=== PATIENT | female | born 1950 | race Caucasian/White ===

== ENCOUNTER 2020-11-09 02:09 | Inpatient (IN) | payer MEDICARE, MEDICAID, SELFPAY ==
[2020-11-09] VITALS (26 sets, daily range): BP systolic 81–155; BP diastolic 54–107; PULSE 79–140; RESP 15–31; TEMP 35.6–36.8; O2SAT 90–98; BMI 27.4
--- NOTE | 2020-11-09 02:16 | ECG_ITS ---
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 Measurements Intervals [place] Rate: 138 P: NM: QRS: 40 QRSD: 101 T: 70 QT: 306 QTc: 465 Interpretive Statements ATRIAL FIBRILLATION WITH RAPID VENTRICULAR RESPONSE MODERATE ST DEPRESSION [0.05+ mV ST DEPRESSION] Compared to ECG 12/05/2015 23:17:42 ST (T wave) deviation now present Sinus rhythm no longer present Electronically Signed On 11-09-2020 22:27:13 CDT by Danika Alan M.D. [id number]
[2020-11-09] MEDS: LORazepam 1 mg Tablet PO (02:24)
--- NOTE | 2020-11-09 02:26 | W.ED.PSYCH ---
HPI - Psych General: Chief Complaint: Psychiatric Symptoms Stated Complaint: si Time Seen by Provider: 11/09/20 02:12 Source: patient and police Mode of arrival: other (police) Limitations: no limitations History of Present Illness: HPI Narrative: 70-year-old female is brought here by [employer] police. She had called suicide hotline and told him that she is suicidal with a plan to kill herself. They dispatched the police. She has told police and me that she has been having problems with her children they have not been treating her right causing her severe depression and she is having suicidal thoughts. She denies any specific plans. She does want to get help. Associated symptoms: Reports suicidal ideation Review of Systems Const: Denies: fever(s), chills, body aches or change in appetite Eyes: Denies: blurry vision or eye discomfort ENMT: Denies: throat pain or dental pain Card: Denies: chest pain Resp: Denies: dyspnea GI: Denies: abdominal pain, nausea, vomiting or diarrhea : Denies: dysuria Musc: Denies: neck pain or back pain Skin/Breast: Denies: rash Neuro: Denies: headache(s) Psych: Reports: suicidal ideation Koby/Lymph: Denies: easy bruising All/Imm: Denies: urticaria Physical Exam Const: COMMON NORMALS: patient oriented x3 and healthy appearing GENERAL APPEARANCE: anxious and odor of alcohol detected HENMT: COMMON NORMALS: normocephalic and atraumatic HEAD & SCALP: normocephalic and atraumatic Eye: COMMON NORMALS: Equal, round and reactive pupils present and EOMs intact bilaterally PUPIL: Yes Equal, round and reactive pupils present Neck/C-Spine: COMMON NORMALS: full ROM and supple Chest: COMMONS NORMALS: normal inspection of the chest and normal palpation of entire chest wall Resp: COMMON NORMALS: normal respiratory effort, No retractions, No use of accessory muscles and clear to auscultation bilaterally AUSCULTATION: clear to auscultation bilaterally Cardio: COMMON NORMALS: No murmurs present (Cardio) RATE: tachycardic RHYTHM: abnormal rhythm irregularly irregular GI: COMMON NORMALS: Normal to inspection, nondistended, normoactive bowel sounds present, Soft to palpation, non-tender and no masses PALPATION: Yes Soft to palpation Extremity: COMMON NORMALS: normal to inspection and full ROM Neuro: COMMON NORMALS: patient oriented x3, moves all extremities and no focal motor deficits Psych: COMMON NORMALS: mental status grossly normal, Normal thought process present and cooperative MOOD & AFFECT: Yes depressed mood and Yes irritable THOUGHT PROCESS: Normal thought process present THOUGHT CONTENT: Yes Suicidality present Skin: COMMON NORMALS: no rashes or lesions noted and no wounds GENERAL SKIN EXAM: no rashes or lesions noted Course Vital Signs: Vital signs: Vital Signs Temperature 98.3 F 11/09/20 02:28 Pulse Rate 140 H 11/09/20 02:53 Respiratory Rate 18 11/09/20 02:53 Blood Pressure 155/89 11/09/20 02:28 Pulse Oximetry 98 11/09/20 02:53 MDM - Psych MDM Narrative: Medical decision making narrative: Patient presents here with suicidal ideation along with alcohol intoxication. Patient when she arrived here was in A. fib with RVR. She did not respond to Cardizem bolus and patient started on a Cardizem drip. Will have to admit for her A. fib with RVR. Patient is under 96-hour hold and psychiatry was consulted. Lab Data: Labs: Lab Results 11/09/20 11/09/20 11/09/20 Range/Units 02:24 02:24 02:30 WBC 12.2 H (4.0-10.0) 10^3/ uL RBC 5.38 H (4.1-5.3) 10^6/u L Hgb 14.6 (11.5-15.3) g/dL Hct 47.1 H (37.0-47.0) % MCV 87.5 (81-99) fL MCH 27.1 L (28.0-34.0) pg MCHC 31.0 (30.0-36.0) g/dL RDW 16.5 H (12.1-15.1) % Plt Count 259 (130-400) 10^3/c mm MPV 11.0 H (7.4-10.4) fL Neut % (Auto) 67.9 % Lymph % (Auto) 21.3 % Rowan % (Auto) 8.0 % Eos % (Auto) 1.3 % Baso % (Auto) 0.9 % Neut # (Auto) 8.30 H (1.8-7.7) 10^3/u L Lymph # (Auto) 2.6 (0.8-4.8) 10^3/u L Rowan # (Auto) 1.0 H (0.2-0.9) 10^3/u L Eos # (Auto) 0.2 (0.0-0.8) 10^3/u L Baso # (Auto) 0.1 (0.0-0.1) 10^3/u L Nucleated RBC % (a uto) 0 % Nucleated RBCs # 0.0 /100WBC Sodium 140 (136-145) mmol/L Potassium 4.0 (3.5-5.1) mmol/L Chloride 103 (98-107) mmol/L Carbon Dioxide 21 L (22-29) mmol/L Anion Gap 20.0 H (5-19) BUN 10 (8-23) mg/dL Creatinine 0.9 (0.5-0.9) mg/dL GFR Calculation 61.9 L (90-130) mL/min Glucose 115 (65-115) mg/dL Calculated Osmolal ity 290 (285-295) mOsm/k g Calcium 9.0 (8.5-10.5) mg/dL Total Bilirubin 0.2 (0.15-1.2) mg/dL AST 16 (0-32) U/L ALT 12 (0-33) U/L Alkaline Phosphata se 96 (35-105) IU/L Total Protein 7.5 (6.6-8.7) g/dL Albumin 4.3 (3.5-5.2) g/dL Globulin 3.2 (1.3-4.6) g/dL Salicylates < 0.3 L (3-10) mg/dL Acetaminophen < 5.0 L (10-30) ug/mL Ethyl Alcohol 111 H (0-10) mg/dL SARS-CoV-2 Ag (Rap id) Negative (Negative) EKG Data^: EKG 1: Attestation: I personally reviewed and interpreted this EKG as follows: EKG interpretation date: 11/09/20 EKG interpretation time: 02:32 Interpretation: afib with rvr hr [address] or t wave abnormalities qrs 101 qtc 387 Discharge Plan Discharge Patient Disposition: Admitted As Inpatient Admit Provider: Vashti Santana Clinical Impression: Suicidal ideation Atrial fibrillation Qualifiers: Atrial fibrillation type: unspecified Qualified Code(s): I48.91 - Unspecified atrial fibrillation Condition: Stable Coding Level of Care Code ED [employer] [facility] Fwd Exam Comprehensive
[2020-11-09 02:34] LABS: Basophils # 0.1 10^3/uL (0.0-0.1); Basophils % 0.9 %; Eosinophils # 0.2 10^3/uL (0.0-0.8); Eosinophils % 1.3 %; Hematocrit 47.1 % (37.0-47.0); Hemoglobin 14.6 g/dL (11.5-15.3); Lymphocytes # 2.6 10^3/uL (0.8-4.8); Lymphocytes % 21.3 %; Mean Corpuscular Hemoglobin 27.1 pg (28.0-34.0); Mean Corpuscular Volume 87.5 fL (81-99); Neutrophils % 67.9 %; Nucleated Red Blood Cells % 0 %; Platelet Count 259 10^3/cmm (130-400); Red Blood Count 5.38 10^6/uL (4.1-5.3); Red Cell Distribution Width 16.5 % (12.1-15.1); White Blood Count 12.2 10^3/uL (4.0-10.0)
[2020-11-09 02:47] LABS: Alanine Aminotransferase 12 U/L (0-33); Albumin Level 4.3 g/dL (3.5-5.2); Alcohol Level 111 mg/dL (0-10); Alkaline Phosphatase 96 IU/L (35-105); Aspartate Amino Transferase 16 U/L (0-32); Blood Urea Nitrogen 10 mg/dL (8-23); Carbon Dioxide 21 mmol/L (22-29); Chloride 103 mmol/L (98-107); Creatinine Clr Calc Pharmacy 60.9915; Globulin 3.2 g/dL (1.3-4.6); Glomerular Filtration Rate 61.9 mL/min (90-130); Glucose 115 mg/dL (65-115); Osmolality Calculated 290 mOsm/kg (285-295); Sodium 140 mmol/L (136-145); Total Bilirubin 0.2 mg/dL (0.15-1.2); Total Protein 7.5 g/dL (6.6-8.7)
[2020-11-09 02:49] LABS: Acetaminophen < 5.0 ug/mL (10-30); Salicylate < 0.3 mg/dL (3-10)
[2020-11-09 02:53] LABS: SARS Covid-2 Antigen Negative (Negative)
[2020-11-09] MEDS: sodium chloride 0.9% 1,000 ML 999 ML IV (02:55)
[2020-11-09] MEDS: LORazepam 2 mg/mL INJ 1 mL 1 MG IVP (02:58)
[2020-11-09] MEDS: nicotine 21 mg Patch 1 PATCH TRANSDERMA ×2 (02:59→19:05)
[2020-11-09] MEDS: multivitamin therapeutic Tablet 1 TAB PO (03:20)
[2020-11-09 03:42] LABS: INR 1.15 (0.8-1.2)
--- NOTE | 2020-11-09 04:36 | P.HP_ITS ---
Providers/Chief Complaint Admitting Physician: Vashti Santana Primary Care Provider: Ton Lee Chief Complaint: si History of Present Illness 70 year old with past medical history of tobacco abuse, alcoholism, anxiety, adjustment disorder with depressed mood, prior admission for suicidal ideation who was brought in the hospital by [employer] police with suicidal ideations and alcohol intoxication. Patient had called suicide hotline. At the time of my eval patient was very drowsy due to multiple doses of Ativan. Patient was apparently agitated prompting this. Unable to obtain history.Upon arrival to emergency room patient was noted to have atrial fibrillation with rapid ve ntricular response. She was initially given Cardizem 20 mg IV x1 however remained in rapid rate after which a Cardizem drip was initiated. Unclear if patient has any history of atrial fibrillation or if this is a new finding. Laboratory work up on arrival showed A WBC of 12.2, hemoglobin of 14.6, hematocrit of 47.1 and a platelet count of 259. INR 1.15. PTT of 15. Sodium 140, potassium 4.0, chloride 103, bicarb 21, BUN 18 and creatinine of 0.9. Etoh level of 111. Review of Systems General: Reports: ROS unobtainable due to medical condition Medications/Allergies Allergies Allergy/AdvReac Type Severity Reaction Status Date / Time codeine Allergy ADR-Itching Verified 11/09/20 02:24 PFSH Acute PFSH: Medical History (Updated 11/09/20 @ 05:02 by Vashti Santana MD) Adjustment reaction with anxiety and depression Alcoholism No pertinent family history Surgical History (Updated 11/09/20 @ 05:00 by Vashti Santana MD) No pertinent past surgical history Social History (Updated 11/09/20 @ 05:01 by Vashti Santana MD) Smoking and tobacco status: current every day smoker Alcohol intake: current Substance/Drug Use: unknown Vitals/I&O/Wt Last Vital Signs Temp 96.1 F L 11/09/20 04:25 Pulse 132 H 11/09/20 04:30 Resp 29 H 11/09/20 04:30 BP 133/66 11/09/20 04:30 Pulse Ox 97 11/09/20 04:30 Weight last 48 hrs Weight 77.111 kg Physical Exam Narrative: EXAM NARRATIVE: General : Drowsy , no distress HEENT: Grossly unremarkable CVS: Irregularly irregular rhythm Chest: CTABL Abd: Soft, NT, ND Ext : No edema Data : 11/09/20 02:24 11/09/20 02:24 A&P Assessment and plan (1) Suicidal ideation: Status: Acute (2) Atrial fibrillation: Status: Acute Qualifiers: Atrial fibrillation type: unspecified Qualified Code(s): I48.91 - Unspecified atrial fibrillation (3) Adjustment reaction with anxiety and depression: Status: Acute (4) Alcohol intoxication: Status: Acute Atrial Fibrillation with RVR Possible new onset Cardizem 20 mg IV x1 in ER Continue cardizem drip - titrate to keep HR < 110 Lovenox 80 mg SQ BID ECHO once HR < 100 Will consider cardiology consult Suicidal Ideation / Depression / Anxiety Verify prior psych meds Psych consult Alcohol intoxication with hx of alcoholism CIWA protocol Ativan PRN per score Folate/ Thiamine NS at 75 cc/hr Seizure/fall precautions Tobacco abuse Nicotine patch GI ppx Pepcid 20 mg IV BID DVT ppx Lovenox as noted above. Attestations Medical Necessity Statement*: Require over 2 midnight stay in hospital for evaluation and treatment of atrial fibrillation, alcohol intoxication and suicidal ideation Time Spent in Patient Care: Greater than 35 minutes (>than 50% of time spent in counselling and/or direct pt care on unit) . Coding Level of Care Code Acute [employer] for [facility] Diagnoses Suicidal ideation R45.851 Atrial fibrillation I48.91 Atrial fibrillation type: unspecified Adjustment reaction with anxiety and depression F43.23 Alcohol intoxication F10.929
[2020-11-09] MEDS: sodium chloride 0.9% 1,000 ML 75 ML IV ×2 (04:39→18:00)
--- NOTE | 2020-11-09 04:47 | XR_ITS ---
WS: [id number] Exam: XR chest 1V portable [id number] Date/Time of Exam: 11/09/2020 5:03 AM Reason For Exam: r/o infectious process No previous exams. The lungs are fully expanded. No acute infiltrates are seen. Unremarkable cardiomediastinal structure s for technique. No pleural effusions. Regional bony elements are intact. Monitoring leads superimpos e the chest. XR/XR chest 1V portable [id number] IMPRESSION: 1. No acute cardiopulmonary finding.
--- NOTE | 2020-11-09 04:48 | USCV_ITS ---
Oralia Jose Age: 70 Gender: F : 1950 Exam Date: 11/09/2020 14:08 Ordering Phys: Vashti Santana MD Technologist: Exam Location: [facility] [place] Indication: SOB BP: 112 / 75 HR: 99 Rhythm: Sinus Technical Quality: Adequate MEASUREMENTS (Male / Female) Normal Values 2D ECHO LV Diastolic Diameter PLAX 3.9 cm 4.2 - 5.9 / 3.9 - 5.3 cm LV Systolic Diameter PLAX 2.6 cm IVS Diastolic Thickness 1.1 cm 0.6 - 1.0 / 0.6 - 0.9 cm IVS Systolic Thickness 1.5 cm LVPW Diastolic Thickness 1.0 cm 0.6 - 1.0 / 0.6 - 0.9 cm LVPW Systolic Thickness 1.5 cm LVOT Diameter 2.0 cm LV Ejection Fraction 2D Teich 62.8 % LV Ejection Fraction MOD 2C 66.4 % LV Ejection Fraction 2C AL 66.8 % LA Diameter 3.5 cm Aorta at Sinotubular Diameter 2.6 cm DOPPLER AV Peak Velocity 277.0 cm/s LVOT Peak Velocity 66.0 cm/s AV Area Cont Eq vti 0.7 cm squared AV Area Cont Eq pk 0.7 cm squared MV Area PHT 5.0 cm squared Mitral E to A Ratio 1.2 MV E' Velocity 66.0 cm/s Mitral E to MV E' Ratio 12.2 Mitral E to LV E' Lateral Ratio 10.3 Mitral E to LV E' Septal Ratio 15.4 TR Peak Velocity 134.7 cm/s TR Peak Gradient 7.3 mmHg TV Peak E Velocity 80.0 cm/s Right Atrial Pressure 3.0 mmHg Pulmonary Artery Systolic Pressu 10.3 mmHg PV Peak Velocity 70.0 cm/s FINDINGS Left Ventricle Normal left ventricular size and systolic function, EF 55 %. No gross wall motion normalities noted Right Ventricle The right ventricle is normal in size and function. Right Atrium Mildly increased right atrial size. Left Atrium Mildly increased left atrial size. Mitral Valve Thickened mitral valve. Moderate mitral annular calcification. Moderate mitral valve regurgitation. Aortic Valve Severe low gradient aortic valve stenosis, mean gradient 12.3 mmHg, ARNOLDO 0.72 cm squared. Moderate aortic valve calcification Tricuspid Valve No gross abnormalities noted Pulmonic Valve Pulmonic valve not well visualized. Pericardium Normal pericardium without effusion. Aorta Normal ascending aorta dimension. CONCLUSIONS Normal left ventricular size and systolic function, EF 55 %. No gross wall motion normalities noted Severe low gradient aortic valve stenosis, mean gradient 12.3 mmHg, ARNOLDO 0.72 cm squared. Moderate aortic valve calcification Thickened mitral valve. Moderate mitral annular calcification. Moderate mitral valve regurgitation. There is no pericardial effusion. Technically difficult study because of the poor ultrasonic window. No previous study is available for comparison. Dr Juan Pablo Diaz MD FACC (Electronically Signed) Final Date: 09 November 2020 17:48 S
[2020-11-09] MEDS: famotidine 20 mg/2 mL INJ IVP ×2 (04:53→16:59)
[2020-11-09] MEDS: enoxaparin 80 mg/0.8 mL Syringe SUBCUT (04:55)
[2020-11-09 05:11] LABS: Procalcitonin 0.02 ng/mL (0-0.5); Thyroid Stimulating Hormone 1.06 uIU/mL (0.27-4.20)
[2020-11-09 06:02] LABS: Lactic Sepsis W/Reflex 1.9 mmol/L (0.5-2.2)
--- NOTE | 2020-11-09 06:05 | PC.NURSE ---
Shift Summary Patient arrived from the ER at 0420 for SI and a Cardizem drip. Patient received a dose of Ativan in the ER and has been sleeping since. Had to increase her Cardizem up to 15 to help control her heart rate, Dr Santana okayed the titrating of Cardizem and we changed the order to reflect that. Patient was de sating a little so placed her on nasal cannula. She has a one on one sitter.
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
[2020-11-09 09:38] LABS: Add Urine Microscopic? NO; Charge for UA Resulting for Rev
--- NOTE | 2020-11-09 09:52 | PC.NURSE ---
Pt sitting on side of bed, pleasant. Regaling one-on-one sitter with stories.
[2020-11-09 10:08] LABS: Urine Color Yellow (Yellow)
[2020-11-09 10:09] LABS: Bilirubin Urine Neg (Negative); Blood Urine Neg (Negative); Glucose Urine UA Norm (Normal); Ketones Urine Negative (Negative); Leukocyte Esterase Urine Negative (Negative); Nitrate Urine Negative (Negative); Protein Urine Neg (Negative); Urine Appearance Clear (CLEAR); Urobilinogen Urine Norm (Negative); pH Urine 5 (5-7)
[2020-11-09 10:15] LABS: Amphetamines Screen Urine Negative (Negative); Barbiturates Screen Urine Negative (Negative); Benzodiazepines Screen Urine Positive (Negative); Cocaine Screen Urine Negative (Negative); Opiate Screen Urine Negative (Negative); PCP Screen Urine Negative (Negative); THC Screen Urine Negative (Negative)
[2020-11-09] MEDS: metoprolol tartrate 25 mg Tablet PO ×2 (12:42→20:11)
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
--- NOTE | 2020-11-09 19:00 | PC.NURSE ---
Report given to KELLE Abraham.
--- NOTE | 2020-11-09 19:09 | PC.NURSE ---
Shift summary: Pt has talked most of the shift, regaling staff with her life history, jokes , etc. Pt has been pleasant most of the shift. However she flipped to anger quickly when she was informed that she would not be discharged today. reassurance and calm words helped her regain control of herself. At no time has she been violent to staff, she has just expressed her frustration. She has repeated begged and pleaded to go home today, then cries then goes back to talking after a few minutes. She has not exhibited any other signs of ETOH withdraw other than agitation. Her heart rate has been 89-125 bpm, she remains in A-fib. She maintains her O2 sats above 92% on room air. She is steady on her feet ambulating to restroom. She is still complaining of her left arm hurting when she lifts it up. Dr good. One -on-one sitter present throughout the shift. Her personal belongings out of room , in 's dictation area.
[2020-11-09] MEDS: diphenhydrAMINE 50 mg Capsule PO (20:11)
[2020-11-09] MEDS: LORazepam 2 mg/mL INJ 1 mL IVP (20:11)
--- NOTE | 2020-11-09 20:15 | PC.RESP ---
Smoking Cessation information sent to patient.
[2020-11-10] VITALS (12 sets, daily range): BP systolic 137; BP diastolic 78–107; PULSE 89–108; RESP 18–38; O2SAT 95–96
[2020-11-10] MEDS: LORazepam 2 mg/mL INJ 1 mL IVP (00:13)
[2020-11-10] MEDS: famotidine 20 mg/2 mL INJ IVP (05:00)
[2020-11-10] MEDS: enoxaparin 80 mg/0.8 mL Syringe SUBCUT (05:00)
[2020-11-10 06:22] LABS: Basophils # 0.1 10^3/uL (0.0-0.1); Basophils % 0.7 %; Eosinophils # 0.1 10^3/uL (0.0-0.8); Eosinophils % 1.6 %; Hemoglobin 12.9 g/dL (11.5-15.3); Lymphocytes # 1.8 10^3/uL (0.8-4.8); Lymphocytes % 19.6 %; Mean Corpuscular HGB Conc 30.7 g/dL (30.0-36.0); Mean Corpuscular Hemoglobin 27.2 pg (28.0-34.0); Mean Corpuscular Volume 88.6 fL (81-99); Mean Platelet Volume 11.5 fL (7.4-10.4); Monocytes # 0.9 10^3/uL (0.2-0.9); Monocytes % 9.7 %; Neutrophils # 6.09 10^3/uL (1.8-7.7); Neutrophils % 68.1 %; Nucleated Red Blood Cells % 0 %; Platelet Count 171 10^3/cmm (130-400); Red Blood Count 4.74 10^6/uL (4.1-5.3); Red Cell Distribution Width 16.2 % (12.1-15.1); White Blood Count 8.9 10^3/uL (4.0-10.0)
[2020-11-10 06:54] LABS: Anion Gap 13.3 (5-19); Blood Urea Nitrogen 7 mg/dL (8-23); Calcium 8.2 mg/dL (8.5-10.5); Carbon Dioxide 25 mmol/L (22-29); Chloride 108 mmol/L (98-107); Glomerular Filtration Rate 98.8 mL/min (90-130); Glucose 100 mg/dL (65-115); NT Pro B Type Natriuretic Pept 2215 pg/mL (0-125); Osmolality Calculated 292 mOsm/kg (285-295); Potassium 4.3 mmol/L (3.5-5.1); Sodium 142 mmol/L (136-145)
[2020-11-10] MEDS: sodium chloride 0.9% 1,000 ML 75 ML IV (07:40)
[2020-11-10] MEDS: multivitamin therapeutic Tablet 1 TAB PO (09:39)
[2020-11-10] MEDS: thiamine 100 mg Tablet PO (09:39)
[2020-11-10] MEDS: nicotine 21 mg Patch 1 PATCH TRANSDERMA (09:39)
[2020-11-10] MEDS: folic acid 1 mg Tablet PO (09:39)
[2020-11-10] MEDS: metoprolol tartrate 25 mg Tablet PO (09:39)
[2020-11-10] MEDS: LORazepam 2 mg Tablet PO (09:40)
--- NOTE | 2020-11-10 10:05 | PC.NURSE ---
Update Pt is awake, alert and oriented this morning. At this time she is being cooperative and appropriate. 1;1 sitter is at bedside.
[2020-11-10] MEDS: acetaminophen 325 mg Tablet 650 MG PO (10:51)
--- NOTE | 2020-11-10 13:24 | PC.NURSE ---
Shift update Patient ate lunch and then abruptly began demanding to be discharged. This nurse explained how we need to wait for the doctor to see her. She wanted to walk in front of the nurses station. We allowed this with the standby assist of 1;1 sitter. Pt is anxious and on CIWA protocol. Will continue to redirect as needed.
--- NOTE | 2020-11-10 16:48 | PC.NURSE ---
Discharge Pt has been given d/c instructions. She understands the instructions that have been given to her. IV has been removed and pt's contact has been notified. 96hour hold has been rescinded.
--- NOTE | 2020-11-10 18:24 | P.DS_ITS ---
Discharge Providers Date of Admission: 11/09/20 04:19 Date of Discharge: November 10, 2020 Attending Provider at Admission: Vashti Santana Attending Provider at Discharge: Vashti Santana Primary Care Provider: Ton Lee Diagnoses at Discharge Discharge Diagnosis (1) Suicidal ideation: Status: Resolved (2) Atrial fibrillation: Status: Acute Qualifiers: Atrial fibrillation type: unspecified Qualified Code(s): I48.91 - Unspecified atrial fibrillation (3) Adjustment reaction with anxiety and depression: Status: Acute (4) Alcohol intoxication: Status: Resolved Reason for Visit Reason for Visit: si Hospital Course Hospital Course 70 year old with past medical history of tobacco abuse, alcoholism, anxiety, Paroxysmal atrial fibrillation on anticoagulation,adjustment disorder with depressed mood, prior admission for suicidal ideation who was brought in the hospital by [employer] police with suicidal ideations and alcohol intoxication. Patient had called suicide hotline. At the time of my eval patient was very drowsy due to multiple doses of Ativan. Patient was apparently agitated prompting this. Unable to obtain history. Laboratory work up on arrival showed A WBC of 12.2, hemoglobin of 14.6, hematocrit of 47.1 and a platelet count of 259. INR 1.15. PTT of 15. Sodium 140, potassium 4.0, chloride 103, bicarb 21, BUN 18 and creatinine of 0.9. Etoh level of 111. Upon arrival to emergency room patient was noted to have atrial fibrillation with rapid ventricular response. She was initially given Cardizem 20 mg IV x1 however remained in rapid rate after which a Cardizem drip was initiated. Also placed on 96 hour hold due to suicidal ideations. Addition was started on ETOH withdrawal protocol. Once patients home meds were verified she was restarted on metoprolol 25mg PO BID in addition to her routine home medication including anticoagulation. She was seen by psychiatry and monitored. [place] she did not qualify for inpatient psych. Patient had denied suicidal ideation at time was discharge. 96hr hold was rescinded. as she was also not requiring any additional benzodiazepines for withdrawals she was discharged home. I discussed with her risks versus benefit of her continue to drink and being on anticoagulation. She understood and stated that she wished to continue as she was going to seek help for alcoholism. Physical Exam Narrative: EXAM NARRATIVE: General : awake alert , no distress HEENT: Grossly unremarkable CVS: Irregularly irregular rhythm Chest: CTABL Abd: Soft, NT, ND Ext : No edema Discharge Data Data Completed and Pending: Completed Studies During Hospitalization Category Date Time Status XR chest 1V rudy ble [id number] Routine Exams 11/09/20 04:47 Completed CV echo complete* [id number] Routine Ultrasound 11/09/20 04:48 Completed Vitals: Last Vital Signs Temp 96.8 F L 11/09/20 07:30 Pulse 100 11/10/20 17:29 Resp 18 11/10/20 17:29 BP 137/78 11/10/20 17:29 Pulse Ox 96 11/10/20 17:29 Discharge Plan Discharge Patient Disposition: Home Condition: Stable Prescriptions: New folic acid 1 mg Tablet 1 mg PO DAILY 30 Days RF: 0 Vitamin B-1 (mononitrate) 100 mg Tablet 100 mg PO DAILY Qty: 30 RF: 0 Continued sertraline 100 mg tablet 100 mg PO DAILY RF: 0 alprazolam 0.5 mg tablet 0.5 mg PO DAILY PRN (Reason: Anxiety) RF: 0 bupropion HCl 75 mg tablet 75 mg PO BID RF: 0 lovastatin 20 mg tablet 20 mg PO DAILY RF: 0 fluticasone propionate 50 mcg/actuation spray,suspension 1 spray INTRANASAL DAILY PRN (Reason: Nasal Congestion) RF: 0 Xarelto 20 mg tablet 20 mg PO DAILY RF: 0 Changed metoprolol tartrate 25 mg tablet 25 mg PO BIDWM Qty: 60 RF: 0 Discontinued potassium chloride 10 mEq tablet extended release 10 meq PO BID RF: 0 tramadol 50 mg tablet 50 mg PO TID PRN (Reason: Pain) RF: 0 trazodone 100 mg tablet 100 mg PO BEDTIME RF: 0 lisinopril 10 mg tablet 10 mg PO DAILY RF: 0 furosemide 20 mg tablet 20 mg PO DAILY RF: 0 Discharge Orders: Discharge Order (Routine); Ordered 11/10/20 Ordered By: Vashti Santana Discharge Diet: Cardiac Discharge Activity: Increase activity as tolerated Patient Instructions: Opioid Safety Activity Restrictions/Additional Instructions: Follow up with your primary care provider in 7 -10 days. Discharge Attestations Time Spent in Discharge Care*: greater than 30 min Specific Discharge Activities: educating patient, educating and/or supporting family/caregiver, discussing with pcp/other providers, discussing with bilingual case manager/social workers/dc planners, documenting/other paperwork and evaluating patient/reviewing data Status at Discharge: Cognitive status at discharge: cognitively intact , Behavioral status at discharge: cooperative , Functional status at discharge: independent ambulation Overall status at discharge: patient is back to baseline Quality Metrics Clinical Quality Measures During this hospital stay, did patient experience: None Coding Level of Care Code Acute [facility] note Diagnoses Suicidal ideation R45.851 Atrial fibrillation I48.91 Atrial fibrillation type: unspecified Adjustment reaction with anxiety and depression F43.23 Alcohol intoxication F10.929
== END 2020-11-10 17:30 | disposition home or self-care (01) | DRG 309 ==
LOC: ER 03:10 → ICU 08:05
PROVIDERS: Admitting Provider Hospitalist; Emergency Provider Emergency Medicine; PCP Family Medicine; Visit Provider Hospitalist
DX: I48.91 Unspecified atrial fibrillation (principal); R45.851 Suicidal ideations; F17.210 Nicotine dependence, cigarettes, uncomplicated; F10.229 Alcohol dependence with intoxication, unspecified; F43.23 Adjustment disorder with mixed anxiety and depressed mood; Z79.01 Long term (current) use of anticoagulants
CPT/HCPCS: 36415; 71045; 80048; 80053; 80306; 80307; 81003; 83605; 83880; 84145; 84443; 85025; 85610; 87426; 93005; 93306; 96361; 96372; 96374; 96375; 96376; 97161; 97530; 99285; J1650; J2060; J3411; J3490; J7030; Q0163